=== PATIENT | female | born 1935 | race Caucasian/White ===

== ENCOUNTER → 2016-12-04 | Outpatient (CLI) | payer OTHER ==
[~2016-12-04] MED LIST: ACET-1311 PO; AMAN100C18 PO; AMLO-110 PO; ANAS1TAB6 PO; ASPEC81 PO; ATV1 SL; CARB25TA12 PO; CEPH500C PO; CHOL100010 PO; CHOL2000 PO; CLON0.5T3 PO; FRRG PO; GLIM1TAB2 PO; HLD1 PO; LIDO5DIS10 TOP; NF656 TOP; NRV5 PO; NUTR-468 PO; POLY335019 PO; QUET1TAB91 PO; SENN-65 PO; SENN8.6T15 PO; SERT-234 PO; SERT50TA PO; SRQ25 PO
[2016-12-04 18:31] LABS: URINE APPEARANCE CLOUDY (CLEAR); URINE BILIRUBIN NEG (NEG); URINE COLOR YELLOW; URINE EPITHELIAL CELL AUTO >30 /lpf (0-5); URINE NITRITE NEG (NEG); URINE SPECIFIC GRAVITY 1.018 (1.000-1.030); UROBILINOGEN NEG (NEG)
[2016-12-04 18:35] LABS: MANUAL MICROSCOPIC REQUIRED? NO; REVIEW REQ? YES
== END | disposition home or self-care (01) ==
LOC: C.LABSPEC 13:50
PROVIDERS: ATTEND Family Medicine
DX: R41.0 Disorientation, unspecified (principal)

== ENCOUNTER → 2016-12-13 | Outpatient (CLI) | payer OTHER ==
[2016-12-13 10:32] LABS: URINE APPEARANCE CLEAR (CLEAR); URINE BILIRUBIN NEG (NEG); URINE COLOR YELLOW; URINE NITRITE NEG (NEG); URINE PH 6.5 (4.5-7.5); URINE SPECIFIC GRAVITY 1.015 (1.000-1.030); UROBILINOGEN NEG (NEG)
[2016-12-13 10:42] LABS: MANUAL MICROSCOPIC REQUIRED? NO; REVIEW REQ? YES
== END | disposition home or self-care (01) ==
LOC: C.LABSPEC 10:08
PROVIDERS: ATTEND Family Medicine
DX: R41.82 Altered mental status, unspecified (principal)

== ENCOUNTER → 2017-01-30 | Outpatient (CLI) | payer OTHER ==
[~2017-01-30] MED LIST changes: +SENN1TAB86 PO; -SENN8.6T15 PO
[2017-01-30 12:23] LABS: BLOOD UREA NITROGEN 25 mg/dl (7-18); BUN/CREATININE RATIO 25.7 (10-20); CALCIUM 9.2 mg/dl (8.5-10.1); CARBON DIOXIDE 28 mmol/L (21-32); CHLORIDE 111 mmol/L (98-107); CREATININE 0.99 mg/dl (0.60-1.20); GLUCOSE 141 mg/dl (70-99); POTASSIUM 4.3 mmol/L (3.5-5.1); SODIUM 146 mmol/L (136-145)
[2017-01-30 13:07] LABS: ESTIMATED AVERAGE GLUCOSE 126 mg/dl; HA1C FLAG Normal (Normal)
== END | disposition home or self-care (01) ==
LOC: C.LABWYN 12:16
PROVIDERS: ATTEND Family Medicine
DX: E11.9 Type 2 diabetes mellitus without complications (principal)

== ENCOUNTER 2017-02-23 08:51 | Inpatient (IN) | payer OTHER ==
[~2017-02-23] VITALS: Ht 160 cm; Wt 39.7 kg
[~2017-02-23 08:51] MED LIST changes: -AMAN100C18 PO; -AMLO-110 PO; -ATV1 SL; -CHOL2000 PO; -HLD1 PO; -NF656 TOP; -POLY335019 PO; -QUET1TAB91 PO; -SENN-65 PO; -SERT50TA PO; -SRQ25 PO
[2017-02-23] MEDS ORDERED: AMLO-110 PO (09:14)
[2017-02-23] MEDS ORDERED: AMAN100C18 PO (09:14)
[2017-02-23 09:29] LABS: URINE APPEARANCE CLEAR (CLEAR); URINE BILIRUBIN NEG (NEG); URINE COLOR YELLOW; URINE EPITHELIAL CELL AUTO 20-30 /lpf (0-5); URINE NITRITE NEG (NEG); URINE SPECIFIC GRAVITY 1.019 (1.000-1.030); UROBILINOGEN NEG (NEG); ZZURINE CULT IF INDIC CATH NO
[2017-02-23 09:33] LABS: MANUAL MICROSCOPIC REQUIRED? NO; REVIEW REQ? NO
[2017-02-23] MEDS ORDERED: QUET1TAB91 PO (09:51)
[2017-02-23] MEDS ORDERED: SENN-65 PO (09:51)
[2017-02-23] MEDS ORDERED: POLY335019 PO (09:51)
[2017-02-23] MEDS ORDERED: SERT50TA PO (09:51)
[2017-02-23] MEDS ORDERED: CHOL2000 PO (09:51)
[2017-02-23] MEDS ORDERED: NF656 TOP (09:51)
[2017-02-23] MEDS ORDERED: SODIUM CHLORIDE 0.9% 1000ML 1,000 ML IV STA ×2 (09:54→12:14)
--- NOTE | 2017-02-23 10:23 | DIAGNOSTIC IMAGING REPORT ---
SINGLE VIEW CHEST CLINICAL HISTORY: Generalized weakness. FINDINGS: An AP, portable, upright chest radiograph is compared to study dated 10/10/2016 and correlated with chest CT dated 02/27/2015. The examination is degraded by portable technique and patient rotation. The cardiomediastinal silhouette is unremarkable. The mitral annulus is densely calcified. Chronic interstitial thickening and apical scarring are similar to previous. No airspace consolidation or large pleural effusion is identified. No pneumothorax is seen. The skeletal structures are osteopenic. Degenerative change and S-shaped thoracolumbar scoliosis are noted in the spine. Cholecystectomy clips are identified in the right upper quadrant. IMPRESSION: No acute cardiopulmonary abnormality. Electronically signed by: Gustavo Strickland M.D. 02/23/2017 10:21 AM Dictated Date/Time: 02/23/2017 10:19 AM
[2017-02-23 10:25] LABS: HEMATOCRIT 30.8 % (37-47); MEAN CELL VOLUME 101.3 fL (80-100); MEAN CORPUSCULAR HEMOGLOBIN 33.9 pg (25-34); MEAN CORPUSCULAR HGB CONC 33.4 g/dl (32-36); MEAN PLATELET VOLUME 9.4 fL (7.4-10.4); PLATELET COUNT 174 K/uL (130-400); RED BLOOD COUNT 3.04 M/uL (4.2-5.4); WHITE BLOOD COUNT 18.19 K/uL (4.8-10.8)
[2017-02-23 10:34] LABS: PARTIAL THROMBOPLASTIN RATIO 0.9; PROTHROMBIN TIME (PATIENT) 10.8 SECONDS (9.0-12.0)
[2017-02-23 10:39] LABS: BLOOD UREA NITROGEN 33 mg/dl (7-18); BUN/CREATININE RATIO 23.7 (10-20); CALCIUM 9.1 mg/dl (8.5-10.1); CARBON DIOXIDE 30 mmol/L (21-32); CHLORIDE 113 mmol/L (98-107); GLUCOSE 160 mg/dl (70-99); MAGNESIUM 2.8 mg/dl (1.8-2.4); POTASSIUM 4.1 mmol/L (3.5-5.1); SODIUM 151 mmol/L (136-145)
[2017-02-23 10:55] LABS: ALKALINE PHOSPHATASE 108 U/L (45-117); ALT/SGPT 25 U/L (12-78); AST/SGOT 15 U/L (15-37); CKMB/CK RATIO 2.3 (0-3.0)
[2017-02-23 10:59] LABS: BASO % 0.3 %; BASO ABS # 0.05 K/uL (0-0.2); COMPLETE YES; EOS % 0.3 %; IG% 0.3 %; LYMPH % 6.2 %; LYMPH ABS # 1.13 K/uL (1.2-3.4); MONO % 5.2 %; NEUT % 87.7 %
--- NOTE | 2017-02-23 11:37 | DIAGNOSTIC IMAGING REPORT ---
CT SCAN OF THE BRAIN WITHOUT IV CONTRAST CLINICAL HISTORY: Tremor. History of Parkinson's disease. Generalized weakness. COMPARISON STUDY: CT of the brain dated 08/23/2016. TECHNIQUE: Unenhanced axial CT scan of the brain is performed from the vertex to the skull base. CT DOSE: 614.27 mGy.cm FINDINGS: Brain parenchyma: There are age-related involutional changes noting mild subcortical and periventricular microangiopathic change. There is no hemorrhage, mass effect, or evidence of acute territorial ischemia by CT criteria. Baxter-white matter is preserved. No extra-axial fluid collection is seen. Ventricles, sulci, cisterns: Prominent secondary to involutional change. Intracranial vasculature: There is atherosclerotic calcification of the cavernous carotid and vertebral arteries. Calvarium: Unremarkable. Sinuses and mastoids: The visualized paranasal sinuses are clear. The mastoid air cells are well pneumatized. Orbits: The bony orbits are grossly intact. There are bilateral ocular lens implants. IMPRESSION: Senescent changes as above with no hemorrhage, mass effect, or evidence of acute territorial ischemia by CT criteria. Electronically signed by: Gustavo Strickland M.D. 02/23/2017 11:34 AM Dictated Date/Time: 02/23/2017 11:33 AM
[2017-02-23] MEDS ORDERED: CEFTRIAXONE SOD INJ 1 GM ADDVIAL IV STA (11:42)
--- NOTE | 2017-02-23 12:49 | History and Physical ---
History & Physical Date & Time of Service: Feb 23, 2017 at 12:49 . Chief Complaint: weakness, confusion . Primary Care Physician: Marlene Walter . History of Present Illness Source: patient, clinic records, hospital records 81 YO female followed by Dr. Schaefer for Family Medicine and Dr. Barahona for Neurology. History of Parkinson's disease, dementia, and other problems noted below. She resides at [facility] in [place]. Family has noticed increasing weakness and confusion. She is often agitated and sometimes screams. At times, she appears to be having visual hallucinations. Appetite is poor. No apparent fever, cough, nausea, vomiting, diarrhea, or urinary symptoms. . Past Medical/Surgical History Chronic and Resolved Medical Problems: (1) Anxiety Status: Chronic (2) Asthma Status: Chronic (3) At high risk for aspiration Status: Chronic (4) Breast cancer Status: Chronic (5) CKD (chronic kidney disease), stage III Status: Chronic (6) Dementia Status: Chronic (7) Depression Status: Chronic (8) Diabetes mellitus, type 2 Status: Chronic (9) PRICE (generalized anxiety disorder) Status: Chronic (10) GERD (gastroesophageal reflux disease) Status: Chronic (11) Parkinson disease Status: Chronic Surgical Problems: (1) Femoral neck fracture Permanent Comment: right, s/p repair Status: Chronic (2) H/O hernia repair Status: Chronic (3) H/O mastectomy Status: Chronic (4) History of cataract surgery Status: Chronic (5) Hx of tonsillectomy Status: Chronic (6) S/P cholecystectomy Status: Chronic (7) S/p left hip fracture Permanent Comment: s/p repair Status: Chronic . Family History Cancer Gallbladder disease Heart disease Social History Smoking Status: Never Smoker Alcohol Use: none Housing status: assisted living Immunizations History of Influenza Vaccine: Yes History of Tetanus Vaccine?: Yes Tetanus Immunization Date: Sep 12, 2014 History of Pneumococcal: Yes Pneumococcal Date: Jan 12, 2016 Multi-Drug Resistant Organisms History of MDRO: No Allergies Coded Allergies: Lisinopril (Unverified Allergy, Unknown, UNKNOWN, 10/10/16) Fluoxetine (Verified Adverse Reaction, Mild, NAUSEA, 10/10/16) if medicated VIA IV PT DOES NOT EXPERIANCE NAUSEA Morphine (Verified Adverse Reaction, Mild, NAUSEA, 10/10/16) Oxycodone (Verified Adverse Reaction, Mild, NAUSEA, 10/10/16) Propoxyphene (Verified Adverse Reaction, Mild, NAUSEA, 10/10/16) Home Medications Scheduled Amantadine Hcl (Amantadine Hcl), 100 MG PO BID Amlodipine (Norvasc), 5 MG PO DAILY Anastrozole (Anastrozole), 1 TAB PO DAILY Carbidopa/Levodopa (Sinemet 25MG/100MG), 1 TABS PO QID Cholecalciferol (Vitamin D3), 1 CAP PO DAILY Clonazepam (Klonopin), 0.5 MG PO TID Ferrous Gluconate (Ferrous Gluconate), 324 MG PO TIDM Glimepiride (Glimepiride), 1 TAB PO DAILY Lidocaine (Lidoderm Patch 5%), 1 PATCH TOP DAILY Nutritional Supplements (Glucerna), 1 CAN PO BID Polyethylene Glycol 3350 (Miralax), 17 GM PO DAILY Quetiapine Fumarate (Seroquel), 25 MG PO HS Sennosides-Docusate Sodium (Senokot S), 2 TABS PO BID Sertraline (Zoloft), 100 MG PO DAILY Sertraline Hcl (Zoloft), 50 MG PO DAILY Scheduled PRN Acetaminophen (Tylenol), 650 MG PO Q4 PRN for Pain Review of Systems Unable to obtain due to patient's condition. . Physical Exam Vital Signs Date Time Temp Pulse Resp B/P Pulse Ox O2 Delivery O2 Flow Rate FiO2 02/23/17 12:06 84 24 135/85 100 Room Air 02/23/17 10:47 74 138/54 72 134/54 02/23/17 10:38 64 20 121/88 98 Room Air 02/23/17 09:10 97 Room Air 02/23/17 09:00 37.9 77 16 138/55 97 Room Air General Appearance: + cachetic Head: normocephalic, atraumatic Eyes: normal inspection, PERRL, EOMI, sclerae normal ENT: + pertinent finding (oral mucosa very dry) Neck: supple, no adenopathy, thyroid normal, no JVD, trachea midline Respiratory/Chest: lungs clear, no respiratory distress, no accessory muscle use Cardiovascular: + pertinent finding (exam very limited (pt prefers not to be examined), RRR, no murmur, gallop, or rub appreciatiate) Abdomen/GI: normal bowel sounds, non tender, soft, no organomegaly, no pulsatile mass Extremities/Musculoskelatal: no calf tenderness, normal capillary refill, no pedal edema Neurologic/Psych: + pertinent finding (exam very limited; pt unable to cooperate; PERRL, EOMI; confused / agitated; moves all 4 extr; Babinski's equivocally upgoing bilat) Skin: normal color, warm/dry, no rash, + pertinent finding (s/p right mastectomy; multiple ecchymoses) Lymphatic: no adenopathy Diagnostics Laboratory Results Results Past 24 Hours Test 02/23/17 09:00 02/23/17 10:14 Range/Units Urine Color YELLOW Urine Appearance CLEAR CLEAR Urine pH 6.0 4.5-7.5 Urine Specific [place] 1.019 1.000-1.030 Urine Protein NEG NEG Urine Glucose (UA) NEG NEG Urine Ketones NEG NEG Urine Occult Blood NEG NEG Urine Nitrite NEG NEG Urine Bilirubin NEG NEG Urine Urobilinogen NEG NEG Urine Leukocyte Esterase TRACE NEG Urine WBC (Auto) 1-5 0-5 /hpf Urine RBC (Auto) 0-4 0-4 /hpf Urine Hyaline Casts (Auto) 5-10 0-5 /lpf Urine Epithelial Cells (Auto) 20-30 0-5 /lpf Urine Bacteria (Auto) NEG NEG White Blood Count 18.19 4.8-10.8 K/uL Red Blood Count 3.04 4.2-5.4 M/uL Hemoglobin 10.3 12.0-16.0 g/dL Hematocrit 30.8 37-47 % Mean Corpuscular Volume 101.3 80-100 fL Mean Corpuscular Hemoglobin 33.9 25-34 pg Mean Corpuscular Hemoglobin Concent 33.4 32-36 g/dl Platelet Count 174 130-400 K/uL Mean Platelet Volume 9.4 7.4-10.4 fL Neutrophils (%) (Auto) 87.7 % Lymphocytes (%) (Auto) 6.2 % Monocytes (%) (Auto) 5.2 % Eosinophils (%) (Auto) 0.3 % Basophils (%) (Auto) 0.3 % Neutrophils # (Auto) 15.94 1.4-6.5 K/uL Lymphocytes # (Auto) 1.13 1.2-3.4 K/uL Monocytes # (Auto) 0.95 0.11-0.59 K/uL Eosinophils # (Auto) 0.06 0-0.5 K/uL Basophils # (Auto) 0.05 0-0.2 K/uL RDW Standard Deviation 50.3 36.4-46.3 fL RDW Coefficient of Variation 13.5 11.5-14.5 % Immature Granulocyte % (Auto) 0.3 % Immature Granulocyte # (Auto) 0.06 0.00-0.02 K/uL Prothrombin Time 10.8 9.0-12.0 SECONDS Prothromb Time International Ratio 1.0 0.9-1.1 Activated Partial Thromboplast Time 23.3 21.0-31.0 SECONDS Partial Thromboplastin Ratio 0.9 Sodium Level 151 136-145 mmol/L Potassium Level 4.1 3.5-5.1 mmol/L Chloride Level 113 98-107 mmol/L Carbon Dioxide Level 30 21-32 mmol/L Anion Gap 8.0 3-11 mmol/L Blood Urea Nitrogen 33 7-18 mg/dl Creatinine 1.40 0.60-1.20 mg/dl Estimated GFR () 41.0 Estimated GFR (Non- 35.4 BUN/Creatinine Ratio 23.7 10-20 Random Glucose 160 70-99 mg/dl Calcium Level 9.1 8.5-10.1 mg/dl Magnesium Level 2.8 1.8-2.4 mg/dl Total Bilirubin 0.5 0.2-1 mg/dl Direct Bilirubin 0.1 0-0.2 mg/dl Aspartate Amino Transf (AST/SGOT) 15 15-37 U/L Alanine Aminotransferase (ALT/SGPT) 25 12-78 U/L Alkaline Phosphatase 108 45-117 U/L Total Creatine Kinase 83 26-192 U/L Creatine Kinase MB 1.9 0.5-3.6 ng/ml Creatine Kinase MB Ratio 2.3 0-3.0 Troponin I < 0.015 0-0.045 ng/ml Total Protein 7.4 6.4-8.2 gm/dl Albumin 3.9 3.4-5.0 gm/dl Thyroid Stimulating Hormone (TSH) 2.900 0.300-4.500 uIu/ml Diagnostic Radiology SINGLE VIEW CHEST FINDINGS: An AP, portable, upright chest radiograph is compared to study dated 10/10/2016 and correlated with chest CT dated 02/27/2015. The examination is degraded by portable technique and patient rotation. The cardiomediastinal silhouette is unremarkable. The mitral annulus is densely calcified. Chronic interstitial thickening and apical scarring are similar to previous. No airspace consolidation or large pleural effusion is identified. No pneumothorax is seen. The skeletal structures are osteopenic. Degenerative change and S-shaped thoracolumbar scoliosis are noted in the spine. Cholecystectomy clips are identified in the right upper quadrant. IMPRESSION: No acute cardiopulmonary abnormality. Electronically signed by: Gustavo Strickland M.D. 02/23/2017 10:[address] SCAN OF THE BRAIN WITHOUT IV CONTRAST FINDINGS: Brain parenchyma: There are age-related involutional changes noting mild subcortical and periventricular microangiopathic change. There is no hemorrhage, mass effect, or evidence of acute territorial ischemia by CT criteria. Baxter-white matter is preserved. No extra-axial fluid collection is seen. Ventricles, sulci, cisterns: Prominent secondary to involutional change. Intracranial vasculature: There is atherosclerotic calcification of the cavernous carotid and vertebral arteries. Calvarium: Unremarkable. Sinuses and mastoids: The visualized paranasal sinuses are clear. The mastoid air cells are well pneumatized. Orbits: The bony orbits are grossly intact. There are bilateral ocular lens implants. IMPRESSION: Senescent changes as above with no hemorrhage, mass effect, or evidence of acute territorial ischemia by CT criteria. Electronically signed by: Gustavo Strickland M.D. 02/23/2017 11:34 AM . EKG EKG performed at 10:01 reviewed and demonstrated NSR at 66 / minute, slight ST depression inferior and lateral leads. . Impression Assessment and Plan ALTERED MENTAL STATUS CT head demonstrated atrophy, small vessel ischemic changes, no acute process. Most likely encephalopathy secondary to metabolic abnormalities. WBC elevated, but no apparent infection at this time. Underlying dementia. Management of hypernatremia and dehydration with IV fluids. HYPERNATREMIA Serum sodium = 151. Hypernatremia probably due to inadequate intake of free water. Hypotonic IV fluids. Follow. DEHYDRATION IV fluids. Follow. LEUKOCYTOSIS WBC 18,000. No fever. No specific symptoms to suggest source of infection. No infiltrates on chest x-ray. UA shows only 1-5 WBC's and no bacteria. Received a dose of ceftriaxone in ED. Reassess as clinically indicated if condition changes. HYPERTENSION Continue amlodipine. Follow and titrate Rx. DM TYPE 2 Random glucose in ED 160. Tight control not indicated given advanced age and comorbidities. Hold glimepiride during acute illness. Insulin coverage as needed with liberal glycemic goals. CHRONIC ASPIRATION Aspiration precautions, thickened liquids, pureed diet. Consult MORTGAGE PROCESSING CLERK for follow-up bedside swallowing eval. PARKINSON'S DISEASE Continue carbidopa/levodopa and amantadine. Consult Neuro. ANXIETY On chronic therapy with clonazepam. Continue usual Rx. DEPRESSION Continue usual dose of sertraline. HISTORY BREAST CA Continue anastrozole. AMBULATORY DYSFUNCTION / FALLS Probably multifactorial. PT / OT evals. VTE PROPHYLAXIS Moderate-high risk for VTE. SQ heparin. Ambulate as able with assistance. RESUSCITATION STATUS Discussed with son / POA. Patient has a living will. Her condition has been deteriorating for some time and her quality of life is poor. He feels that she would prefer a natural passing and not want any extraordinary measures undertaken at end of life. Code status = DNR. DISPOSITION Admit to Med-Surg Unit. Discharge disposition to be determined- may need higher level of care. Consult Case Management. Family Medicine follow-up with Dr. Schaefer. Neurology follow-up with Dr. Barahona. Son Leighton would like update on changes of condition or medications. . VTE Prophylaxis VTE Risk Assessment Done? Y/N: Yes Risk Level: Moderate Given or contraindicated: Unfractionated heparin SQ
[2017-02-23 13:10] VITALS: O2SAT 100; BMI 15.5
[2017-02-23 13:13] VITALS: Ht 160 cm; Wt 39.7 kg
[2017-02-23 14:02] VITALS: BP 135/79; PULSE 73; TEMP 36.7; O2SAT 100
[2017-02-23] MEDS ORDERED: D5W AND 1/2NSS + 20MEQ KCL 1,000 ML IV SCH (14:45)
[2017-02-23] MEDS: CLONAZEPAM 0.5 MG TAB PO SCH ×2 (16:22→21:41)
[2017-02-23] MEDS: CARBIDOPA/LEVODOPA 25/100MG TAB PO SCH ×2 (16:23→21:37)
[2017-02-23 16:35] VITALS: O2SAT 100
--- NOTE | 2017-02-23 16:56 | EMERGENCY ROOM VISIT NOTE ---
History Report prepared by Ayde: Gilberto Pacheco Under the Supervision of: Dr. Rubni Toney M.D. First contact with patient: 09:34 Chief Complaint: OTHER COMPLAINT Stated Complaint: OTHER COMPLAINT History of Present Illness The patient is an 81 year old female with a history of Parkinson's who presents to the Emergency Room with complaints of increased generalized tremors. The patient came to the ED from [facility]. The patient's granddaughter received a text from [facility] that the patient was screaming and that they were going to bring her to the ED. The patient is not at baseline mental status per her granddaughter, who states that the patient is normally able to converse. The patient denies headache, chest pain, abdominal pain. The patient reportedly behaves this way when she has a UTI. The patient follows up with Dr. Barahona, Neurologist. [facility] The granddaughter notes that the patient falls frequently. History is limited secondary to altered mental status. Source of History: patient, family, long-term notes History Limited By: AMS Position: other (generalized) Quality: other (tremors) Timing: other (increased) Associated Symptoms: No abdominal pain, No chest pain, No headache Review of Systems ROS is limited secondary to altered mental status. Past Medical & Surgical Medical Problems: (1) Altered mental status (2) Asthma (3) At high risk for aspiration (4) Breast cancer (5) CKD (chronic kidney disease), stage III (6) Dementia (7) Depression (8) DM2 (diabetes mellitus, type 2) (9) Encephalopathy (10) PRICE (generalized anxiety disorder) (11) GERD (gastroesophageal reflux disease) (12) Parkinson disease (13) UTI (urinary tract infection) Surgical Problems: (1) Femoral neck fracture (2) H/O hernia repair (3) H/O mastectomy (4) History of cataract surgery (5) Hx of tonsillectomy (6) S/P cholecystectomy (7) S/p left hip fracture Family History Cancer Gallbladder disease Heart disease Social History Smoking Status: Unknown if Ever Smoked Alcohol Use: none Housing Status: lives with significant other, long-term, unknown Current/Historical Medications Scheduled Amantadine Hcl (Amantadine Hcl), 100 MG PO BID Amlodipine (Norvasc), 5 MG PO DAILY Anastrozole (Anastrozole), 1 TAB PO DAILY Carbidopa/Levodopa (Sinemet 25MG/100MG), 1 TABS PO QID Cholecalciferol (Vitamin D3), 1 CAP PO DAILY Clonazepam (Klonopin), 0.5 MG PO TID Ferrous Gluconate (Ferrous Gluconate), 324 MG PO TIDM Glimepiride (Glimepiride), 1 TAB PO DAILY Lidocaine (Lidoderm Patch 5%), 1 PATCH TOP DAILY Nutritional Supplements (Glucerna), 1 CAN PO BID Polyethylene Glycol 3350 (Miralax), 17 GM PO DAILY Quetiapine Fumarate (Seroquel), 25 MG PO HS Sennosides-Docusate Sodium (Senokot S), 2 TABS PO BID Sertraline (Zoloft), 100 MG PO DAILY Sertraline Hcl (Zoloft), 50 MG PO DAILY Scheduled PRN Acetaminophen (Tylenol), 650 MG PO Q4 PRN for Pain Allergies Coded Allergies: Lisinopril (Unverified Allergy, Unknown, UNKNOWN, 10/10/16) Fluoxetine (Verified Adverse Reaction, Mild, NAUSEA, 10/10/16) if medicated VIA IV PT DOES NOT EXPERIANCE NAUSEA Morphine (Verified Adverse Reaction, Mild, NAUSEA, 10/10/16) Oxycodone (Verified Adverse Reaction, Mild, NAUSEA, 10/10/16) Propoxyphene (Verified Adverse Reaction, Mild, NAUSEA, 10/10/16) Physical Exam Vital Signs Date Time Temp Pulse Resp B/P Pulse Ox O2 Delivery O2 Flow Rate FiO2 02/23/17 12:06 84 24 135/85 100 Room Air 02/23/17 10:47 74 138/54 72 134/54 02/23/17 10:38 64 20 121/88 98 Room Air 02/23/17 09:10 97 Room Air 02/23/17 09:00 37.9 77 16 138/55 97 Room Air Physical Exam GENERAL: Awake, alert, agitated-appearing, no acute distress, somewhat gaunt- appearing. HENT: Normocephalic, atraumatic. Very dry mucous membranes. EYES: Normal conjunctiva. Sclera non-icteric. NECK: Supple. No nuchal rigidity. FROM. No JVD. RESPIRATORY: Clear to auscultation. CARDIAC: Regular rate, normal rhythm. Extremities warm and well perfused. Pulses equal. ABDOMEN: Soft, non-distended. No tenderness to palpation. No rebound or guarding. No masses. BACK: Kyphotic. RECTAL: Deferred. MUSCULOSKELETAL: Chest examination reveals no tenderness. The back is symmetrical on inspection without obvious abnormality. There is no CVA tenderness to palpation. No joint edema. LOWER EXTREMITIES: Calves are equal size bilaterally and non-tender. No edema. Scattered bruising bilaterally. NEURO: Altered sensorium. Speech is very garbled. Follows basic commands although not cooperating for full neuro exam. Baseline tremor noted. SKIN: No rash or jaundice noted. Medical Decision & Procedures ER Provider Diagnostic Interpretation: X ray results as stated below per my interpretation and radiologist interpretation. Other radiology results as stated below per my review and radiologist interpretation CT SCAN OF THE BRAIN WITHOUT IV CONTRAST CLINICAL HISTORY: Tremor. History of Parkinson's disease. Generalized weakness. COMPARISON STUDY: CT of the brain dated 08/23/2016. TECHNIQUE: Unenhanced axial CT scan of the brain is performed from the vertex to the skull base. CT DOSE: 614.27 mGy.cm FINDINGS: Brain parenchyma: There are age-related involutional changes noting mild subcortical and periventricular microangiopathic change. There is no hemorrhage, mass effect, or evidence of acute territorial ischemia by CT criteria. Baxter-white matter is preserved. No extra-axial fluid collection is seen. Ventricles, sulci, cisterns: Prominent secondary to involutional change. Intracranial vasculature: There is atherosclerotic calcification of the cavernous carotid and vertebral arteries. Calvarium: Unremarkable. Sinuses and mastoids: The visualized paranasal sinuses are clear. The mastoid air cells are well pneumatized. Orbits: The bony orbits are grossly intact. There are bilateral ocular lens implants. IMPRESSION: Senescent changes as above with no hemorrhage, mass effect, or evidence of acute territorial ischemia by CT criteria. Electronically signed by: Gustavo Strickland M.D. 02/23/2017 11:34 AM Dictated Date/Time: 02/23/2017 11:33 AM SINGLE VIEW CHEST CLINICAL HISTORY: Generalized weakness. FINDINGS: An AP, portable, upright chest radiograph is compared to study dated 10/10/2016 and correlated with chest CT dated 02/27/2015. The examination is degraded by portable technique and patient rotation. The cardiomediastinal silhouette is unremarkable. The mitral annulus is densely calcified. Chronic interstitial thickening and apical scarring are similar to previous. No airspace consolidation or large pleural effusion is identified. No pneumothorax is seen. The skeletal structures are osteopenic. Degenerative change and S-shaped thoracolumbar scoliosis are noted in the spine. Cholecystectomy clips are identified in the right upper quadrant. IMPRESSION: No acute cardiopulmonary abnormality. Electronically signed by: Gustavo Strickland M.D. 02/23/2017 10:21 AM Dictated Date/Time: 02/23/2017 10:19 AM Laboratory Results 02/23/17 10:14 Red Blood Count 3.04, Mean Corpuscular Volume 101.3, Mean Corpuscular Hemoglobin 33.9, Mean Corpuscular Hemoglobin Concent 33.4, Mean Platelet Volume 9.4, Neutrophils (%) (Auto) 87.7, Lymphocytes (%) (Auto) 6.2, Monocytes (%) ( Auto) 5.2, Eosinophils (%) (Auto) 0.3, Basophils (%) (Auto) 0.3, Neutrophils # ( Auto) 15.94, Lymphocytes # (Auto) 1.13, Monocytes # (Auto) 0.95, Eosinophils # ( Auto) 0.06, Basophils # (Auto) 0.05 02/23/17 10:14 Test 02/23/17 09:00 02/23/17 10:14 Urine Color YELLOW Urine Appearance CLEAR (CLEAR) Urine pH 6.0 (4.5-7.5) Urine Specific [place] 1.019 (1.000-1.030) Urine Protein NEG (NEG) Urine Glucose (UA) NEG (NEG) Urine Ketones NEG (NEG) Urine Occult Blood NEG (NEG) Urine Nitrite NEG (NEG) Urine Bilirubin NEG (NEG) Urine Urobilinogen NEG (NEG) Urine Leukocyte Esterase TRACE (NEG) Urine WBC (Auto) 1-5 /hpf (0-5) Urine RBC (Auto) 0-4 /hpf (0-4) Urine Hyaline Casts (Auto) 5-10 /lpf (0-5) Urine Epithelial Cells (Auto) 20-30 /lpf (0-5) Urine Bacteria (Auto) NEG (NEG) White Blood Count 18.19 K/uL (4.8-10.8) Red Blood Count 3.04 M/uL (4.2-5.4) Hemoglobin 10.3 g/dL (12.0-16.0) Hematocrit 30.8 % (37-47) Mean Corpuscular Volume 101.3 fL (80-100) Mean Corpuscular Hemoglobin 33.9 pg (25-34) Mean Corpuscular Hemoglobin Concent 33.4 g/dl (32-36) Platelet Count 174 K/uL (130-400) Mean Platelet Volume 9.4 fL (7.4-10.4) Neutrophils (%) (Auto) 87.7 % Lymphocytes (%) (Auto) 6.2 % Monocytes (%) (Auto) 5.2 % Eosinophils (%) (Auto) 0.3 % Basophils (%) (Auto) 0.3 % Neutrophils # (Auto) 15.94 K/uL (1.4-6.5) Lymphocytes # (Auto) 1.13 K/uL (1.2-3.4) Monocytes # (Auto) 0.95 K/uL (0.11-0.59) Eosinophils # (Auto) 0.06 K/uL (0-0.5) Basophils # (Auto) 0.05 K/uL (0-0.2) RDW Standard Deviation 50.3 fL (36.4-46.3) RDW Coefficient of Variation 13.5 % (11.5-14.5) Immature Granulocyte % (Auto) 0.3 % Immature Granulocyte # (Auto) 0.06 K/uL (0.00-0.02) Prothrombin Time 10.8 SECONDS (9.0-12.0) Prothromb Time International Ratio 1.0 (0.9-1.1) Activated Partial Thromboplast Time 23.3 SECONDS (21.0-31.0) Partial Thromboplastin Ratio 0.9 Anion Gap 8.0 mmol/L (3-11) Estimated GFR () 41.0 Estimated GFR (Non- 35.4 BUN/Creatinine Ratio 23.7 (10-20) Calcium Level 9.1 mg/dl (8.5-10.1) Magnesium Level 2.8 mg/dl (1.8-2.4) Total Bilirubin 0.5 mg/dl (0.2-1) Direct Bilirubin 0.1 mg/dl (0-0.2) Aspartate Amino Transf (AST/SGOT) 15 U/L (15-37) Alanine Aminotransferase (ALT/SGPT) 25 U/L (12-78) Alkaline Phosphatase 108 U/L (45-117) Total Creatine Kinase 83 U/L (26-192) Creatine Kinase MB 1.9 ng/ml (0.5-3.6) Creatine Kinase MB Ratio 2.3 (0-3.0) Troponin I < 0.015 ng/ml (0-0.045) Total Protein 7.4 gm/dl (6.4-8.2) Albumin 3.9 gm/dl (3.4-5.0) Procalcitonin < 0.05 ng/mL (0-0.5) Thyroid Stimulating Hormone (TSH) 2.900 uIu/ml (0.300-4.500) Laboratory results reviewed by me Medications Administered Medications (Trade) Dose Ordered Sig/Miracle Route Start Time Stop Time Status Last Admin Dose Admin Sodium Chloride (Nss 1000ml) 1,000 ml @ 999 mls/hr Q1H1M STAT IV 02/23/17 09:54 02/23/17 10:54 DC 02/23/17 09:54 999 MLS/HR Ceftriaxone Sodium 1 gm 1 gm NOW STAT IV 02/23/17 11:42 02/23/17 11:44 DC 02/23/17 11:42 1 GM Sodium Chloride (Nss 1000ml) 1,000 ml @ 125 mls/hr Q8H STAT IV 02/23/17 12:14 02/23/17 14:47 DC 02/23/17 13:00 125 MLS/HR ECG Indication: altered mental status Rate (beats per minute): 66 Rhythm: normal sinus Findings: nonspecific-ST abn, no acute ischemic change, prolonged QT ED Course 0950: The patient was evaluated in room A2. A complete history and physical exam was performed. 0954: NSS 1000 ml @ 999 mls/hr. 1142: Rocephin 1 gm IV. 1214: NSS 1000 ml @ 125 mls/hr. 1215: Updated the patient's family. [facility] medicine is being paged. 1237: Discussed the case with Dr. Seymour, [facility] Hospitalist. The patient will be evaluated. 1250: Had a long conversation with the family and updated them. They recommended restraints as she usually tries to pull her IVs out. Medical Decision Triage Nursing notes reviewed. The patient's presentation and history were concerning for altered mental status. Etiologies such as metabolic, infection, hypo/hyperglycemia, electrolyte abnormalities, cardiac sources, intracerebral event, toxicologic, neurologic, as well as others were entertained. Patient was evaluated. She has a extensive neurologic history. She appears clinically dehydrated. She had a urine sample obtained. Blood work was done. Imaging was ordered. The patient was hydrated with normal saline. She has a slight leukocytosis. Urinalysis did show some abnormality but was not overly convincing for infection. Given the leukocytosis change in mental status she was given IV Rocephin. A culture was sent. I did discuss this with the patient 's family. She will need further treatment in the hospital as well as consultation. They were in agreement. [facility] The patient was evaluated in the Emergency Room for further management. The chart was completed utilizing [employer] Speech voice recognition software. Grammatical errors, random word insertions, pronoun errors, and incomplete sentences are an occasional consequence of this system due to software limitations, ambient noise, and hardware issues. Any formal questions or concerns about the content, text, or information contained within the body of this dictation should be directly addressed to the physician for clarification. Consults Time Called: 1220 Consulting Phys[facility] Returned Call: [phone]: Discussed the case with [facility]. The patient will be evaluated. Impression Primary Impression: Altered mental status Additional Impressions: Dehydration UTI (urinary tract infection) Scribe Attestation The scribe's documentation has been prepared under my direction and personally reviewed by me in its entirety. I confirm that the note above accurately reflects all work, treatment, procedures, and medical decision making performed by me. Departure Information Dispostion Being Evaluated By Hospitalist Referrals ADAMA COOPER (PCP) Patient Instructions My [facility] Problem Qualifiers
[2017-02-23 21:05] LABS: BUN/CREATININE RATIO 26.1 (10-20); CALCIUM 8.6 mg/dl (8.5-10.1); CREATININE 1.1 mg/dl (0.60-1.20); POTASSIUM 3.9 mmol/L (3.5-5.1)
[2017-02-23] MEDS ORDERED: ACETAMINOPHEN 325 MG TAB PO PRN (21:30)
[2017-02-23] MEDS: HEPARIN SOD 5000 UNIT/0.5 ML CARP SQ SCH (21:36)
[2017-02-23] MEDS: AMANTADINE HCL 100 MG CAP PO SCH (21:38)
[2017-02-23] MEDS: DOCUSATE SODIUM/SENNA 50/8.6MG TAB PO SCH (21:39)
[2017-02-23] MEDS: QUETIAPINE FUMARATE 25 MG TAB PO SCH (21:39)
[2017-02-23] MEDS: D5W AND 1/4NSS + 20MEQ KCL 1,000 ML IV SCH (22:48)
[2017-02-24] VITALS: BP 139/56; PULSE 74; TEMP 36.4; O2SAT 98
[2017-02-24 06:35] LABS: BASO % 0.4 %; BASO ABS # 0.04 K/uL (0-0.2); COMPLETE YES; EOS % 3.5 %; HEMATOCRIT 30.7 % (37-47); IG% 0.2 %; LYMPH % 18.9 %; LYMPH ABS # 2.03 K/uL (1.2-3.4); MEAN CELL VOLUME 104.4 fL (80-100); MEAN CORPUSCULAR HEMOGLOBIN 34.7 pg (25-34); MEAN CORPUSCULAR HGB CONC 33.2 g/dl (32-36); MEAN PLATELET VOLUME 10.7 fL (7.4-10.4); MONO % 7.7 %; NEUT % 69.3 %; PLATELET COUNT 148 K/uL (130-400); RED BLOOD COUNT 2.94 M/uL (4.2-5.4); WHITE BLOOD COUNT 10.72 K/uL (4.8-10.8)
[2017-02-24 06:44] VITALS: BP 129/58; PULSE 84; TEMP 36.6; O2SAT 99
[2017-02-24 06:54] LABS: BUN/CREATININE RATIO 22.8 (10-20); CALCIUM 8.7 mg/dl (8.5-10.1); CREATININE 0.94 mg/dl (0.60-1.20); POTASSIUM 4.2 mmol/L (3.5-5.1)
[2017-02-24] MEDS: D5W AND 1/4NSS + 20MEQ KCL 1,000 ML IV SCH ×2 (08:24→17:54)
[2017-02-24] MEDS: AMANTADINE HCL 100 MG CAP PO SCH (08:25)
[2017-02-24] MEDS: CARBIDOPA/LEVODOPA 25/100MG TAB PO SCH ×4 (08:26→20:27)
[2017-02-24] MEDS: DOCUSATE SODIUM/SENNA 50/8.6MG TAB PO SCH (08:26)
[2017-02-24] MEDS: HEPARIN SOD 5000 UNIT/0.5 ML CARP SQ SCH (08:30)
[2017-02-24] MEDS: CLONAZEPAM 0.5 MG TAB PO SCH ×3 (08:32→20:27)
[2017-02-24] MEDS ORDERED: ANASTROZOLE 1 MG TAB PO SCH (09:00)
[2017-02-24] MEDS ORDERED: SERTRALINE HCL 50 MG TAB PO SCH (09:00)
[2017-02-24] MEDS ORDERED: AMLODIPINE BESYLATE 5 MG TAB PO SCH (09:00)
[2017-02-24] MEDS ORDERED: SERTRALINE HCL 100 MG TAB PO SCH (09:00)
[2017-02-24 10:26] VITALS: O2SAT 100
--- NOTE | 2017-02-24 10:33 | Clinical Documentation Query ---
CLINICAL DOCUMENTATION QUERY Dr. SANTANA, In your clinical opinion is this patient being managed for: ( ) Acute kidney failure, POA ( ) Other explanation of clinical findings (Please Explain) ( ) Unable to determine (Please Define) ( ) Need to Discuss ( ) Not Agree The medical record reflects the following clinical findings, treatment, and risk factors. Clinical Indicators: 81 yo female presenting with altered mental status, hypernatremia. Na 151, BUN 33, Cr 1.40. Review of historical Cr showed range of 0.71-1.0 over the past year. Treatment: 1L NSS bolus then continuous fluids, monitor PRP's Risk Factors: age, dehydration, CKD stage III, DM Please clarify and document your clinical opinion in the progress notes and discharge summary. Terms such as "probable", "suspected", "likely", "questionable", "possible", or "still to be ruled out" are acceptable. IF IN AGREEMENT, YOU MUST DOCUMENT ABOVE DIAGNOSTIC STATEMENT IN DAILY PROGRESS NOTES AND DISCHARGE SUMMARY. This document is not part of the patient's record. Thank You, Josselyn Azar, RN [phone]
--- NOTE | 2017-02-24 14:00 | Neurology Consultation ---
Neurology Consultation Date of Consultation: Feb 24, 2017. Attending Physician: Miri Franklin M.D. Primary Care Physician: Marlene Walter Reason for Consultation: delirium Parkinson's disease History of Present Illness Source: patient Chapo is an 81 year old female who is currently living at [facility]. she has a history of parkinson's disease and dementia and is known to our office. She had some increased confusion and agitation and sometimes screams. She sometimes has visual hallucinations. She has not been eating well. She is very [place] and does not answer appropriately to questions. She does say she takes her parkinson 's medications 3 x a day with meals. denies pain, SOB, abdominal pain. she thinks she is here for surgery. Past Medical/Surgical History Medical Problems: (1) Altered mental status Status: Acute (2) Constipation Status: Acute (3) Dehydration Status: Acute (4) Dehydration Status: Acute (5) Dehydration Status: Acute (6) Diverticulitis Status: Acute (7) Failure to thrive Status: Acute (8) Fall Status: Acute (9) Hypertension Status: Acute (10) Intertrochanteric fracture of left hip Status: Acute (11) Metabolic encephalopathy Status: Acute (12) Pain in superior left lower extremity Status: Acute (13) Right ankle sprain Status: Acute (14) Shoulder pain, right Status: Acute Social History Smoking Status: Former smoker Alcohol Use: none Housing Status: lives with significant other, residential, unknown Allergies Coded Allergies: Lisinopril (Unverified Allergy, Unknown, UNKNOWN, 10/10/16) Fluoxetine (Verified Adverse Reaction, Mild, NAUSEA, 10/10/16) if medicated VIA IV PT DOES NOT EXPERIANCE NAUSEA Morphine (Verified Adverse Reaction, Mild, NAUSEA, 10/10/16) Oxycodone (Verified Adverse Reaction, Mild, NAUSEA, 10/10/16) Propoxyphene (Verified Adverse Reaction, Mild, NAUSEA, 10/10/16) Current Inpatient Medications Current Inpatient Medications Medications (Trade) Dose Ordered Sig/Miracle Route Start Time Stop Time Status Last Admin Dose Admin Heparin Sodium (Porcine) (Heparin Sq 5000 Unit/0.5ml) 5,000 unit Q12 SQ 02/23/17 21:00 03/25/17 20:59 02/24/17 08:30 5,000 UNIT Amantadine HCl (Symmetrel Cap) 100 mg BID PO 02/23/17 21:00 03/25/17 20:59 02/24/17 08:25 100 MG Amlodipine Besylate (Norvasc Tab) 5 mg DAILY PO 02/24/17 09:00 03/26/17 08:59 02/24/17 08:27 5 MG Anastrozole (Arimidex Tab) 1 mg DAILY PO 02/24/17 09:00 03/26/17 08:59 02/24/17 08:29 1 MG Carbidopa/Levodopa (Sinemet 25/ 100MG Tab) 1 tab QID PO 02/23/17 17:00 03/25/17 16:59 02/24/17 13:30 1 TAB Clonazepam (Klonopin Tab) 0.5 mg TID PO 02/23/17 14:00 03/25/17 13:59 02/24/17 13:30 0.5 MG Quetiapine Fumarate (seroQUEL TAB) 25 mg HS PO 02/23/17 21:00 03/25/17 20:59 02/23/17 21:39 25 MG Senna/Docusate Sodium (Senokot S Tab) 2 tab BID PO 02/23/17 21:00 03/25/17 20:59 02/24/17 08:26 2 TAB Sertraline HCl (Zoloft Tab) 100 mg DAILY PO 02/24/17 09:00 02/24/17 08:28 100 MG Sertraline HCl (Zoloft Tab) 50 mg DAILY PO 02/24/17 09:00 02/24/17 08:28 50 MG Acetaminophen 650 mg 650 mg Q6H PRN PO 02/23/17 21:30 03/25/17 21:29 02/23/17 21:37 650 MG Potassium Chloride/Dextrose/ Sod Cl (D5W And 1/4nss + 20meq KCl) 1,000 ml @ 100 mls/hr Q10H IV 02/23/17 22:30 03/25/17 22:29 02/24/17 08:24 100 MLS/HR Physical Exam Vital Signs (Past 24 Hrs): Date Time Temp Pulse Resp B/P Pulse Ox O2 Delivery O2 Flow Rate FiO2 02/24/17 10:26 100 Room Air 02/24/17 06:44 36.6 84 20 129/58 99 Room Air 02/24/17 00:00 Room Air 02/24/17 00:00 36.4 74 20 139/56 98 Room Air 02/23/17 16:35 100 Room Air 02/23/17 14:34 Room Air 02/23/17 14:02 36.7 73 20 135/79 100 Room Air Physical Exam: Constitutional: appearance thin pale, decreased blink frequency, masked facies Ears, Nose, Mouth and Throat: mucous membranes Cardiovascular: normal S-1 and S-2 and regular rate and rhythm Respiratory: clear to auscultation (CTA) and no rales, rhonchi or wheeze Musculoskeletal: no peripheral edema Skin: no stigmata of neurocutaneous disease noted and normal and intact Eyes: extraocular muscles intact (EOMI) and pupils equal, round and reactive to light (PERRL) NEUROLOGIC EXAMINATION: Mental status: Alert and interactive but does not know where she is although she does think she is here for surgery Oriented to person Speech difficult to understand due to voice tremor Cranial Nerves smile symmetric, tongue midline Reflexes: Deep tendon reflexes were symmetrical and graded 2/5. plantar extension spasm Sensory: to light touch and cool touch Coordination: finger to hand with no bi pass Gait/Stance: Posture sitting up in bed Motor: hold hands bilaterally in air no drift Strength: hand spool fixer biceps triceps 4+/5, hip flex 5/5 bilaterally Laboratory Results Past 24 Hours: 02/24/17 06:15 Red Blood Count 2.94, Mean Corpuscular Volume 104.4, Mean Corpuscular Hemoglobin 34.7, Mean Corpuscular Hemoglobin Concent 33.2, Mean Platelet Volume 10.7, Neutrophils (%) (Auto) 69.3, Lymphocytes (%) (Auto) 18.9, Monocytes (%) ( Auto) 7.7, Eosinophils (%) (Auto) 3.5, Basophils (%) (Auto) 0.4, Neutrophils # ( Auto) 7.43, Lymphocytes # (Auto) 2.03, Monocytes # (Auto) 0.83, Eosinophils # ( Auto) 0.37, Basophils # (Auto) 0.04 02/24/17 06:15 Test 02/23/17 14:24 02/24/17 06:15 02/24/17 07:36 Lactic Acid Level 0.8 mmol/L (0.4-2.0) White Blood Count 10.72 K/uL (4.8-10.8) Red Blood Count 2.94 M/uL (4.2-5.4) Hemoglobin 10.2 g/dL (12.0-16.0) Hematocrit 30.7 % (37-47) Mean Corpuscular Volume 104.4 fL (80-100) Mean Corpuscular Hemoglobin 34.7 pg (25-34) Mean Corpuscular Hemoglobin Concent 33.2 g/dl (32-36) Platelet Count 148 K/uL (130-400) Mean Platelet Volume 10.7 fL (7.4-10.4) Neutrophils (%) (Auto) 69.3 % Lymphocytes (%) (Auto) 18.9 % Monocytes (%) (Auto) 7.7 % Eosinophils (%) (Auto) 3.5 % Basophils (%) (Auto) 0.4 % Neutrophils # (Auto) 7.43 K/uL (1.4-6.5) Lymphocytes # (Auto) 2.03 K/uL (1.2-3.4) Monocytes # (Auto) 0.83 K/uL (0.11-0.59) Eosinophils # (Auto) 0.37 K/uL (0-0.5) Basophils # (Auto) 0.04 K/uL (0-0.2) RDW Standard Deviation 51.4 fL (36.4-46.3) RDW Coefficient of Variation 13.6 % (11.5-14.5) Immature Granulocyte % (Auto) 0.2 % Immature Granulocyte # (Auto) 0.02 K/uL (0.00-0.02) Anion Gap 9.0 mmol/L (3-11) Est Creatinine Clear Calc Drug Dose 29.9 ml/min Estimated GFR () 66.4 Estimated GFR (Non- 57.3 BUN/Creatinine Ratio 22.8 (10-20) Calcium Level 8.7 mg/dl (8.5-10.1) Bedside Glucose 157 mg/dl (70-90) Imaging CT head- There are age-related involutional changes noting mild subcortical and periventricular microangiopathic change. There is no hemorrhage, mass effect , or evidence of acute territorial ischemia by CT criteria. [place]-white matter is preserved. No extra-axial fluid collection is seen. Impression 81 year female history of parkinson's disease and dementia - acute delirium Plan 1. sinemet 25/100 mg QID -may be causing hallucinations would not increase- if hallucination continue could try reducing dosing 2. psychiatry for delirium -Seroquel was tried in the past causing too much sedation. 3. records indicate son has make her DNR 4. would minimize transfers if possible can cause increased confusion and hospital delirium 5. does not appear to have overt delirium 6. fall precautions 7. supplements if needed for nutritional status I have seen and discussed above patient with Dr Rubin Barahona, neurology Patient known to me She has advanced pd with dementia and hallucinations and aggressive behavior toward recently seroquel added and she may hve become more lethargic on this and is now dehydrated and not taking fluids or food welll has her usual dysarthria almost pseudobulbar speech hearing loss and today actually has minomal dyskinesias and little bradykinesia or rigidity and minimal tremor. At this point would not push the sinemet as it will only make her mental status and hallucinations worse continue seroquel and getpsych involved re management of her agitation and axnieties possibly a candidate for nuplazid but to date I have been less than impressed with its overall added value in management of parkinsons hallucinations and particularly in managing the agitation will continue to follow reviewed with Daphne Barhaona MD
[2017-02-24 14:50] VITALS: BP 158/70; PULSE 61; TEMP 36.3; O2SAT 100
--- NOTE | 2017-02-24 17:55 | Progress Note ---
Internal Med Progress Note Date of Service: Feb 24, 2017. Provider Documentation: SUBJECTIVE: very confused , crying , trying to climb out of bed Son -Leighton and granddaughter present at bedside updated by Speech therapy earlier -pt refused to have any thickened liquid during speech eval which will continue to lead to be severely dehydrated Discussed with family -very poor quality of life with advance dementia, Parkinson's disease , significant dysphagia limited life expectancy based on numerous studies with combination of above co morbidities palliative care would be appropriate for the patient where she will be allowed to eat and drink what she likes ( thin liquid as per pt's preference ) allowing permissive aspiration her worsening of confusion could be combination of delirium /metabolic encephalopathy due to dehydration /hypernatremia with underling dementia Son and granddaughter are very tearful they do not want to see her in such as state and suffer willing for hospice /comfort care ordered to transition care for hospice Palliative care consult requested will cont gentle hydration overnight -hoping to allow some improvement of mentation with hydration and correction of hypernatremia at reasonable level social service will be updated regarding hospice care depending pt's clinical status will determine inpatient hospice vs transition of comfort care to retirement family is OK for [facility] OBJECTIVE: minimum exam due to Hospice Care Vital Signs-as noted below Exam: General-elderly female , very delirious , crying , asking for help , trying to climb out of bed constantly ENT-very dry oral mucosa Neuro-disoriented, confused Lab data as noted below. ASSESSMENT & PLAN: DELIRIUM /AGITATION ; Due to metabolic encephalopathy with dehydration ./hypernatremia CT head demonstrated atrophy, small vessel ischemic changes, no acute process. has underlying dementia /Parkinson;s disease very poor prognosis family willing for Hospice , comfort care pt will be provided continued support , reassurance 1:1 observation for pt's safely IM PRN Haldol for extreme agitation HYPERNATREMIA/dehydration due to dehydration , pt refused to have thickened liquid was recommended due to high aspiration risk diet changed to thin liquid with permission aspiration for comfort cont IV for next 24 hrs to allow enough correction of electrolyte to improve confusion /delirium CHRONIC ASPIRATION appreciate speech eval very poor prognosis with chronic aspiration pt refused to have thickened liquid a bedside eval diet changed to mechanical soft with thin liquid , comfort care hospice for poor prognosis PARKINSON'S DISEASE leading to delirium on Sinemet appreciate Neurology eval RESUSCITATION STATUS Discussed with son / POA. DNR /DNI has living will -does not feeding tube , heroic measures if there is no chance of meaningful recovery or quality of live Hospice /comfort care Palliative care consult requested DISPOSITION was a resident at [facility] on hospice care Comfort care /hospice Social service /Palliative care consult requested to assist in discharge planning Vital Signs: Date Time Temp Pulse Resp B/P Pulse Ox O2 Delivery O2 Flow Rate FiO2 02/24/17 17:01 Room Air 02/24/17 14:50 36.3 61 16 158/70 100 Room Air 02/24/17 10:26 100 Room Air 02/24/17 06:44 36.6 84 20 129/58 99 Room Air 02/24/17 00:00 Room Air 02/24/17 00:00 36.4 74 20 139/56 98 Room Air Lab Results: Results Past 24 Hours Test 02/23/17 20:17 02/23/17 20:37 02/24/17 06:15 02/24/17 07:36 Range/Units Sodium Level 154 151 136-145 mmol/L Potassium Level 3.9 4.2 3.5-5.1 mmol/L Chloride Level 118 117 98-107 mmol/L Carbon Dioxide Level 26 25 21-32 mmol/L Anion Gap 10.0 9.0 3-11 mmol/L Blood Urea Nitrogen 29 21 7-18 mg/dl Creatinine 1.10 0.94 0.60-1.20 mg/dl Est Creatinine Clear Calc Drug Dose 25.6 29.9 ml/min Estimated GFR () 54.9 66.4 Estimated GFR (Non- 47.4 57.3 BUN/Creatinine Ratio 26.1 22.8 10-20 Random Glucose 100 143 70-99 mg/dl Calcium Level 8.6 8.7 8.5-10.1 mg/dl Bedside Glucose 111 157 70-90 mg/dl White Blood Count 10.72 4.8-10.8 K/uL Red Blood Count 2.94 4.2-5.4 M/uL Hemoglobin 10.2 12.0-16.0 g/dL Hematocrit 30.7 37-47 % Mean Corpuscular Volume 104.4 80-100 fL Mean Corpuscular Hemoglobin 34.7 25-34 pg Mean Corpuscular Hemoglobin Concent 33.2 32-36 g/dl Platelet Count 148 130-400 K/uL Mean Platelet Volume 10.7 7.4-10.4 fL Neutrophils (%) (Auto) 69.3 % Lymphocytes (%) (Auto) 18.9 % Monocytes (%) (Auto) 7.7 % Eosinophils (%) (Auto) 3.5 % Basophils (%) (Auto) 0.4 % Neutrophils # (Auto) 7.43 1.4-6.5 K/uL Lymphocytes # (Auto) 2.03 1.2-3.4 K/uL Monocytes # (Auto) 0.83 0.11-0.59 K/uL Eosinophils # (Auto) 0.37 0-0.5 K/uL Basophils # (Auto) 0.04 0-0.2 K/uL RDW Standard Deviation 51.4 36.4-46.3 fL RDW Coefficient of Variation 13.6 11.5-14.5 % Immature Granulocyte % (Auto) 0.2 % Immature Granulocyte # (Auto) 0.02 0.00-0.02 K/uL
[2017-02-24] MEDS ORDERED: HALOPERIDOL LACTATE 5 MG/ML 1 ML VIAL IM PRN (18:30)
[2017-02-24] MEDS ORDERED: LORAZEPAM INJ 0.5 MG in SYRINGE 0.25 ML IV PRN (18:30)
[2017-02-24] MEDS ORDERED: LORAZEPAM 2 MG/ML 1 ML VIAL IV PRN (19:00)
[2017-02-24] MEDS: QUETIAPINE FUMARATE 25 MG TAB PO SCH (20:27)
[2017-02-25] MEDS: D5W AND 1/4NSS + 20MEQ KCL 1,000 ML IV SCH (06:27)
[2017-02-25] MEDS: CARBIDOPA/LEVODOPA 25/100MG TAB PO SCH ×4 (09:33→20:58)
[2017-02-25] MEDS: CLONAZEPAM 0.5 MG TAB PO SCH ×3 (09:34→20:58)
--- NOTE | 2017-02-25 14:43 | Palliative Care Consultation ---
Consultation Date of Consultation: Feb 25, 2017. Requesting Physician: Dr. Franklin Attending Physician: Dr. Franklin Reason for Consultation: Goals of care, symptom management History of Present Illness This 81 year old female patient presented to the ED two days ago from [facility] with c/o increased weakness and confusion. Patient herself is a poor historian with dementia and Parkinson's disease. Her son apparently stated that patient has been confused, agitated and possibly even hallucinating. Her sodium was 151 on admission, CT of the head negative for anything acute. Neurology was consulted-- suggested not to increase sinemet as it could contribute to hallucinations. Patient also has trouble with swallowing/aspiration. She was evaluated by speech, but refuses thickened liquids. Patient's overall prognosis is very poor and patient's son/POA Charly Tejeda and patient's granddaughter stated that patient would just want to be comfortable in this situation, no heroic measures. Palliative care consulted to assist with establishing goals of care. I met with the patient in room 260. She has a 1:1 [employer] POLISHER or safety, but the FRENCH POLISHER states that patient has been doing better today, no agitation or behavioral issues. She is pleasantly confused and very hard of hearing. She could not participate in goals of care conversation. Her son is coming in today, I will try to meet with him to do POLST form and discuss. order processing manager updated me and stated that the plan is for patient to go back to [facility] with hospice. Past Medical/Surgical History Medical History: CVA Parkinson's disease Dementia Anxiety Asthma CKD Depression DM 2 GERD Surgical History: Hernia repair Cholecystectomy Left hip fracture Mastectomy Cataract Tonsillectomy Social History Smoking Status: Never Smoker History of Alcohol Use: No Housing Status: assisted living Review of Systems ENT: + hearing loss Respiratory: No cough, No shortness of breath Cardiac: No chest pain Abdomen: No nausea, No pain, No vomiting Female : No problem reported limited ROS due to patient's cognition Allergies Coded Allergies: Lisinopril (Unverified Allergy, Unknown, UNKNOWN, 10/10/16) Fluoxetine (Verified Adverse Reaction, Mild, NAUSEA, 10/10/16) if medicated VIA IV PT DOES NOT EXPERIANCE NAUSEA Morphine (Verified Adverse Reaction, Mild, NAUSEA, 10/10/16) Oxycodone (Verified Adverse Reaction, Mild, NAUSEA, 10/10/16) Propoxyphene (Verified Adverse Reaction, Mild, NAUSEA, 10/10/16) Medications Current Inpatient Medications Medications (Trade) Dose Ordered Sig/Miracle Route Start Time Stop Time Status Last Admin Dose Admin Carbidopa/Levodopa (Sinemet 25/ 100MG Tab) 1 tab QID PO 02/23/17 17:00 03/25/17 16:59 02/25/17 12:56 1 TAB Clonazepam (Klonopin Tab) 0.5 mg TID PO 02/23/17 14:00 03/25/17 13:59 02/25/17 13:36 0.5 MG Quetiapine Fumarate (seroQUEL TAB) 25 mg HS PO 02/23/17 21:00 03/25/17 20:59 02/24/17 20:27 25 MG Acetaminophen 650 mg 650 mg Q6H PRN PO 02/23/17 21:30 03/25/17 21:29 02/23/17 21:37 650 MG Potassium Chloride/Dextrose/ Sod Cl (D5W And 1/4nss + 20meq KCl) 1,000 ml @ 75 mls/hr [id number] IV 02/23/17 22:30 03/25/17 22:29 02/25/17 06:27 75 MLS/HR Haloperidol Lactate 5 mg 5 mg Q6 PRN IM 02/24/17 18:30 03/26/17 18:29 02/24/17 21:26 5 MG Lorazepam/Syringe (Ativan Inj/ Syringe) 0.5 ml @ 0.5 mls/min Q4 PRN IV 02/24/17 18:30 03/26/17 18:29 02/24/17 21:14 0.5 MLS/MIN Lorazepam (Ativan Inj) 0.5 mg Q4H PRN IV 02/24/17 19:00 03/26/17 18:59 Physical Exam Date Time Temp Pulse Resp B/P Pulse Ox O2 Delivery O2 Flow Rate FiO2 02/25/17 07:50 Room Air 02/25/17 00:00 Room Air 02/24/17 17:01 Room Air 02/24/17 14:50 36.3 61 16 158/70 100 Room Air General Appearance: no apparent distress, + thin ENT: + pertinent finding (hard of hearing) Neck: no JVD Respiratory: no respiratory distress, no accessory muscle use, + decreased breath sounds Cardiovascular: regular rate, rhythm, no edema, + normal peripheral pulses Abdomen: normal bowel sounds, non tender, soft Neurologic/Psychiatric: alert, + disoriented Laboratory Results Last 24 Hours Test 02/24/17 16:24 Bedside Glucose 111 mg/dl Assessment & Plan Palliative Performance Scale: 40 % Problem list: Confusion/delirium- metabolic encephalopathy vs. dementia vs. Parkinson's Weakness Hypernatremia Dysphagia/aspiration Low PO intake Goals of care (Z51.5) Palliative care plan: -DNR/DNI per previous discussion between patient's son and provider -Goal is to go back to [facility] with hospice -Will try to get POLST form completed with patient's son/Leighton WALSH -Change lorazepam to SL tab -Continue other medications Thank you kindly for this consult. I will follow as needed.
[2017-02-25 16:00] VITALS: O2SAT 100
--- NOTE | 2017-02-25 17:40 | Progress Note ---
Internal Med Progress Note Date of Service: Feb 25, 2017. Provider Documentation: SUBJECTIVE: on comfort care/hospice OBJECTIVE: minimum exam due to Hospice Care Vital Signs-as noted below Exam: General-elderly female , very delirious , crying , asking for help , trying to climb out of bed constantly ENT-very dry oral mucosa Neuro-disoriented, confused Lab data as noted below. ASSESSMENT & PLAN: COMFORT CARE /HOSPICE : Very poor prognosis with advance dementia /Perkinson's disease /severe dysphagia /recurrent aspiration presented with Hypernatremia , dehydration , MICHELLE on comfort care hospice appreciate palliative care [facility] changed to SL PRN D/C IVF RESUSCITATION STATUS DNR /DNI has living will -does not feeding tube , heroic measures if there is no chance of meaningful recovery or quality of live Hospice /comfort care Palliative care consult requested -appreciate input DISPOSITION was a resident at [facility] return to [facility] with hospice care Vital Signs: Date Time Temp Pulse Resp B/P Pulse Ox O2 Delivery O2 Flow Rate FiO2 02/26/17 08:00 Room Air 02/26/17 00:00 Room Air 02/25/17 16:00 100 Room Air
[2017-02-25] MEDS ORDERED: LORAZEPAM 1 MG TAB SL PRN (17:45)
--- NOTE | 2017-02-25 17:58 | PROGRESS NOTE ---
DATE: 02/25/2017 I saw Chapo today with her son at her bedside. She seems calm in his presence, is less agitated, still was dysarthria, is confused but does not appear to be actively hallucinating. Her Parkinson's is about the same with some dyskinetic movements today, very little bradykinesia and rigidly with her peculiar speech pattern I think is a mix of the speech associated with hearing impairment which she certainly has and a nonspecific pseudobulbar type pattern that might be seen as part of her Parkinson's. Whatever the case, the son now is thinking about placing her in [facility] for hospice and not taking her back to I believe [facility]. We will see how things mak out, but right now she has been made comfort care and I totally agree with this. I would suggest that low dose Seroquel be used on an as needed basis for periods of agitation. The 25 mg at bedtime might be a reasonable standard dose and 12.5 mg up to twice a day in addition to that would be not be an unusual starter dose. I will follow her at this point, but again we are on record is emphasizing that dopamine therapy is not going to help this over and above the level she is at now to keep her motor status reasonably well controlled. More dopamine is simply going to agitate her, increase her hallucinations and make her management more difficult. MTDD
[2017-02-25] MEDS: QUETIAPINE FUMARATE 25 MG TAB PO SCH (20:58)
[2017-02-26] MEDS: CLONAZEPAM 0.5 MG TAB PO SCH ×2 (08:47→13:08)
[2017-02-26] MEDS: CARBIDOPA/LEVODOPA 25/100MG TAB PO SCH ×3 (08:47→16:38)
[2017-02-26] MEDS ORDERED: QUETIAPINE FUMARATE 25 MG TAB PO PRN (11:45)
[2017-02-26] MEDS ORDERED: HALOPERIDOL 1 MG TAB PO PRN (11:45)
--- NOTE | 2017-02-26 14:39 | Neurology Progress Notes ---
Neurology Progress Note Date of Service Feb 26, 2017. Nas Cowan is an 81 year old female who is currently living at [facility]. she has a history of parkinson's disease and dementia and is known to our office. She had some increased confusion and agitation and sometimes screams. She sometimes has visual hallucinations. She has not been eating well. She is very [place] and does not answer appropriately to questions. She states she is feeling well today. denies CP, SOB, abdominal pain, N, V. Objective Date Time Temp Pulse Resp B/P Pulse Ox O2 Delivery O2 Flow Rate FiO2 02/26/17 08:00 Room Air 02/26/17 00:00 Room Air 02/25/17 16:00 100 Room Air no new labs Imaging: no new imaging Exam: Physical Exam: Constitutional: appearance thin pale Ears, Nose, Mouth and Throat: mucous membranes moist,decreased blink frequency, mask facies Cardiovascular: normal S-1 and S-2 and regular rate and rhythm Respiratory: clear to auscultation (CTA) and no rales, rhonchi or wheeze Musculoskeletal: no peripheral edema Skin: no stigmata of neurocutaneous disease noted and normal and intact Eyes: extraocular muscles intact (EOMI) and pupils equal, round and reactive to light (PERRL) NEUROLOGIC EXAMINATION: Mental status: Alert and interactive Oriented she knows she is at [facility] Oriented to person Speech fluent with no evidence of aphasia, but hear to understand at times Cranial Nerves facial symmetry Sensory: intact to light touch Coordination: finger to nose with no bi pass, no cog wheeling, resting tremor bilaterally with some essential tremor with reach Gait/Stance: sitting up in bed Motor: Negative for pronator drift of out stretched arms with eyes closed. Strength: generalized weakness, lifts legs against gravity, some LE rigidity Current Inpatient Medications Medications (Trade) Dose Ordered Sig/Miracle Route Start Time Stop Time Status Last Admin Dose Admin Carbidopa/Levodopa (Sinemet 25/ 100MG Tab) 1 tab QID PO 02/23/17 17:00 03/25/17 16:59 02/26/17 13:08 1 TAB Clonazepam (Klonopin Tab) 0.5 mg TID PO 02/23/17 14:00 03/25/17 13:59 02/26/17 13:08 0.5 MG Quetiapine Fumarate (seroQUEL TAB) 25 mg HS PO 02/23/17 21:00 03/25/17 20:59 02/25/17 20:58 25 MG Acetaminophen (Tylenol Tab) 650 mg Q6H PRN PO 02/23/17 21:30 03/25/17 21:29 02/23/17 21:37 650 MG Haloperidol Lactate (Haldol Inj) 5 mg Q6 PRN IM 02/24/17 18:30 03/26/17 18:29 02/24/17 21:26 5 MG Lorazepam (Ativan Inj) 0.5 mg Q4H PRN IV 02/24/17 19:00 03/26/17 18:59 Lorazepam (Ativan Tab) 1 mg Q6 PRN SL 02/25/17 17:45 03/27/17 17:44 Quetiapine Fumarate (seroQUEL TAB) 12.5 mg BID PRN PO 02/26/17 11:45 03/28/17 11:44 Haloperidol (Haldol Tab) 2 mg Q6 PRN PO 02/26/17 11:45 03/28/17 11:44 Impression 81 year female history of parkinson's disease and dementia - acute delirium Plan 1. sinemet 25/100 mg QID -may be causing hallucinations would not increase- if hallucination continue could try reducing dosing 2. psychiatry for delirium -Seroquel was tried in the past causing too much sedation. was restarted on low dose seroquel 3. records indicate son has make her DNR- palliative medicine has been consulted 4. would minimize transfers if possible can cause increased confusion and hospital delirium 5. does not appear to have overt delirium 6. fall precautions 7. supplements if needed for nutritional status 8. ok to transfer back to facility once medically appropriate-currently no 1:1 in room I have seen and discussed above patient with Dr Rubin Barahona, neurology Patient seen but now apparently gong back to [facility] on old sinemet dose and low dose seroquel she is calm but clearly demented today and has minor parkinsons signs and only mild dyskinesia and her chronic odd dysarthria we will see bck in clinic as perviously scheduled Rubin Barahona MD
[2017-02-26] MEDS ORDERED: SRQ25 PO (15:06)
[2017-02-26] MEDS ORDERED: CLON0.5T3 PO (15:06)
[2017-02-26] MEDS ORDERED: QUET1TAB91 PO (15:06)
[2017-02-26] MEDS ORDERED: HLD1 PO (15:06)
[2017-02-26] MEDS ORDERED: ATV1 SL (15:06)
--- NOTE | 2017-02-26 15:08 | Discharge Instructions ---
Discharge Instructions Date of Service Feb 26, 2017. Admission Reason for Admission: Altered Mental Status Discharge Discharge Diagnosis / Problem: ADVANCED DEMENTIA /SEVERE DYSPHAGIA /HOSPICE Discharge Goals Goal(s): Decrease discomfort Activity Recommendations Activity Limitations: as noted below ( TOLERATED ) . Instructions / Follow-Up Instructions / Follow-Up RETURN TO [facility] WITH HOSPICE Current Hospital Diet Patient's current hospital diet: Regular Diet Discharge Diet Recommended Diet: Regular Diet Pending Studies Studies pending at discharge: no Laboratory Results Hemoglobin A1c Test 01/30/17 07:05 Range/Units Estimated Average Glucose 126 mg/dl Hemoglobin A1c 6.0 H 4.5-5.6 % Medical Emergencies . Who to Call and When: Medical Emergencies: If at any time you feel your situation is an emergency, please call 911 immediately. . Non-Emergent Contact Non-Emergency issues call your: Urologist ([facility] ) . . "Provider Documentation" section prepared by Miri Franklin. . VTE Core Measure Inpt VTE Proph given/why not?: Unfractionated heparin SQ [place] Drug Monitoring Program Search Results: no issues identified
--- NOTE | 2017-02-26 15:14 | Progress Note ---
Internal Med Progress Note Date of Service: Feb 26, 2017. Provider Documentation: SUBJECTIVE: wants to know when she can go home tearful no agitation noted pt is reassured that she will be able to return home as soon as possible per nursing -pt managed to eat regular diet with out any discomfort OBJECTIVE: minimum exam due to Hospice Care Vital Signs-as noted below Exam: General-elderly female , advance dementia, no agitation noted ENT- NAD Neuro-advance dementia , oriented to person only Lab data as noted below. ASSESSMENT & PLAN: COMFORT CARE /HOSPICE : Very poor prognosis with advance dementia /Parkinson's disease /severe dysphagia /recurrent aspiration presented with Hypernatremia , dehydration , MICHELLE on comfort care hospice appreciate palliative care consult Ativan changed to SL PRN PARKINSON'S DISEASE: with advanced dementia, progressive dysphagia very poor prognosis appreciate input form Neurology on Sinemet on Seroquel 25 mg PO HS Seroquel 12.5 mg PO BID PRN for agitation ordered as per Neurology recommendation family-Son Leighton Tejeda -willing for Hospice care -as pt does not have any quality of life RESUSCITATION STATUS DNR /DNI has living will -does not feeding tube , heroic measures if there is no chance of meaningful recovery or quality of live Hospice /comfort care Palliative care consult requested -appreciate input DISPOSITION [facility] with hospice care appreciate input form Social service pt will return to the personal senior care [facility] today with [facility] involved in care Vital Signs: Date Time Temp Pulse Resp B/P Pulse Ox O2 Delivery O2 Flow Rate FiO2 02/26/17 08:00 Room Air 02/26/17 00:00 Room Air 02/25/17 16:00 100 Room Air
--- NOTE | 2017-02-26 15:18 | Discharge Summary ---
Discharge Summary Date of Service Feb 26, 2017. Discharge Summary Admission Date: Feb 23, 2017 at 12:48 Discharge Date: Feb 26, 2017 Discharge Disposition: Personal care (with Hospice through [facility] ) Principal Diagnosis: ADVANCED DEMENTIA /SEVERE DYSPHAGIA /HOSPICE Consultations: NEUROLOGY -DR QUARLES PALLIATIVE CARE Medication Reconciliation New Medications: Haloperidol (Haloperidol) 1 Mg Tab 2 MG PO Q6 PRN for agitation , #60 TAB Lorazepam (Lorazepam) 1 Mg Tab 1 MG SL Q6 PRN for Anxiety/agitation , #90 TAB Quetiapine Fumarate (Quetiapine Fumarate) 25 Mg Tab 12.5 MG PO BID PRN for agitation , #30 TAB Continued Medications: Acetaminophen (Tylenol) 325 Mg Tab 650 MG PO Q4 PRN for Pain, TAB Carbidopa/Levodopa (Sinemet 25MG/100MG) Tab 1 TABS PO QID, TAB Cholecalciferol (Vitamin D3) 2,000 Unit Cap 1 CAP PO DAILY for 30 Days, #30 CAP 3 Refills Clonazepam (Klonopin) 0.5 Mg Tab 0.5 MG PO TID, #90 TAB (This prescription has been renewed) Lidocaine (Lidoderm Patch 5%) 1 Ea Tdsy 1 PATCH TOP DAILY Polyethylene Glycol 3350 (Miralax) 1 Pow Pow 17 GM PO DAILY, #527 GM Quetiapine Fumarate (Seroquel) 25 Mg Tab 25 MG PO HS, #30 TAB (This prescription has been renewed) Sennosides-Docusate Sodium (Senokot S) 1 Tab Tab 2 TABS PO BID, TAB Discontinued Medications: Amantadine Hcl (Amantadine Hcl) 100 Mg Cap 100 MG PO BID, CAP Amlodipine (Norvasc) 5 Mg Tab 5 MG PO DAILY, TAB Anastrozole (Anastrozole) 1 Mg Tab 1 TAB PO DAILY Ferrous Gluconate (Ferrous Gluconate) 324 Mg Tab 324 MG PO TIDM for 30 Days, #90 TAB Glimepiride (Glimepiride) 1 Mg Tab 1 TAB PO DAILY for 90 Days, #90 TAB 3 Refills Nutritional Supplements (Glucerna) 1 Liq Liq 1 CAN PO BID Sertraline (Zoloft) 100 Mg Tab 100 MG PO DAILY, TAB Sertraline Hcl (Zoloft) 50 Mg Tab 50 MG PO DAILY, TAB Admission Information HPI (per Admitting provider): 81 YO female followed by Dr. Schaefer for Family Medicine and Dr. Quarles for Neurology. History of Parkinson's disease, dementia, and other problems noted below. She resides at [facility] in [place]. Family has noticed increasing weakness and confusion. She is often agitated and sometimes screams. At times, she appears to be having visual hallucinations. Appetite is poor. No apparent fever, cough, nausea, vomiting, diarrhea, or urinary symptoms. . Physical Exam (per Admitting): General Appearance: + cachetic Head: normocephalic, atraumatic Eyes: normal inspection, PERRL, EOMI, sclerae normal ENT: + pertinent finding (oral mucosa very dry) Neck: supple, no adenopathy, thyroid normal, no JVD, trachea midline Respiratory/Chest: lungs clear, no respiratory distress, no accessory muscle use Cardiovascular: + pertinent finding (exam very limited (pt prefers not to be examined), RRR, no murmur, gallop, or rub appreciatiate) Abdomen/GI: normal bowel sounds, non tender, soft, no organomegaly, no pulsatile mass Extremities/Musculoskelatal: no calf tenderness, normal capillary refill, no pedal edema Neurologic/Psych: + pertinent finding (exam very limited; pt unable to cooperate; PERRL, EOMI; confused / agitated; moves all 4 extr; Babinski's equivocally upgoing bilat) Skin: normal color, warm/dry, no rash, + pertinent finding (s/p right mastectomy; multiple ecchymoses) Lymphatic: no adenopathy Hospital Course COMFORT CARE /HOSPICE : Very poor prognosis with advance dementia /Parkinson's disease /severe dysphagia /recurrent aspiration presented with Hypernatremia , dehydration , MICHELLE on comfort care hospice appreciate palliative care consult Ativan changed to SL PRN PARKINSON'S DISEASE: with advanced dementia, progressive dysphagia very poor prognosis appreciate input form Neurology on Sinemet on Seroquel 25 mg PO HS Seroquel 12.5 mg PO BID PRN for agitation ordered as per Neurology recommendation family-Son Leighton Tejeda -willing for Hospice care -as pt does not have any quality of life RESUSCITATION STATUS DNR /DNI has living will -does not feeding tube , heroic measures if there is no chance of meaningful recovery or quality of live Hospice /comfort care Palliative care consult requested -appreciate input DISPOSITION was a resident at [facility] return to [facility] with hospice care appreciate input form Social service pt will return to the personal [facility] today with [facility] involved in care Total time spent on discharge = 35 m ins This includes examination of the patient, discharge planning, medication reconciliation, and communication with other providers. Discharge Instructions Discharge Instructions Date of Service Feb 26, 2017. Admission Reason for Admission: Altered Mental Status Discharge Discharge Diagnosis / Problem: ADVANCED DEMENTIA /SEVERE DYSPHAGIA /HOSPICE Discharge Goals Goal(s): Decrease discomfort Activity Recommendations Activity Limitations: as noted below ( TOLERATED ) . Instructions / Follow-Up Instructions / Follow-Up RETURN TO [facility] WITH HOSPICE Current Hospital Diet Patient's current hospital diet: Regular Diet Discharge Diet Recommended Diet: Regular Diet Pending Studies Studies pending at discharge: no Laboratory Results Hemoglobin A1c Test 01/30/17 07:05 Range/Units Estimated Average Glucose 126 mg/dl Hemoglobin A1c 6.0 H 4.5-5.6 % Medical Emergencies . Who to Call and When: Medical Emergencies: If at any time you feel your situation is an emergency, please call 911 immediately. . Non-Emergent Contact Non-Emergency issues call your: Urologist ([facility] ) . . "Provider Documentation" section prepared by Miri Franklin. . VTE Core Measure Inpt VTE Proph given/why not?: Unfractionated heparin SQ PA Drug Monitoring Program Search Results: no issues identified Additional Copies To Rosibel Schaefer,DO
[2017-02-26 16:31] VITALS: BP 158/70; PULSE 61; TEMP 36.3; O2SAT 100
== END 2017-02-26 17:30 | disposition hospice, home (50) | DRG 682 ==
LOC: ENRESERVTM → ENRESERVDT → EDBD 08:51 → C.EDA 08:53 → C.MS2W 12:48
PROVIDERS: ADMIT Hospitalist; ATTEND Hospitalist
DX: N17.9 Acute kidney failure, unspecified (principal); E87.0 Hyperosmolality and hypernatremia; G93.41 Metabolic encephalopathy; Z51.5 Encounter for palliative care; N39.0 Urinary tract infection, site not specified; F02.81 Dementia in other diseases classified elsewhere, unspecified severity, with behavioral disturbance; R25.1 Tremor, unspecified; G31.83 Neurocognitive disorder with Lewy bodies; I12.9 Hypertensive chronic kidney disease with stage 1 through stage 4 chronic kidney disease, or unspecified chronic kidney disease; Z66 Do not resuscitate; N18.3 Chronic kidney disease, stage 3 (moderate); Z85.3 Personal history of malignant neoplasm of breast; E11.21 Type 2 diabetes mellitus with diabetic nephropathy; F41.1 Generalized anxiety disorder; R13.10 Dysphagia, unspecified

== ENCOUNTER 2017-02-27 20:05 | Emergency (ER) | payer OTHER ==
[~2017-02-27] VITALS: Ht 165.1 cm; Wt 42.3 kg
[~2017-02-27 20:05] MED LIST changes: -ANAS1TAB6 PO; -ASPEC81 PO; +ATV1 SL; -CEPH500C PO; -CHOL100010 PO; +CHOL2000 PO; -FRRG PO; -GLIM1TAB2 PO; +HLD1 PO; -LIDO5DIS10 TOP; +NF656 TOP; -NRV5 PO; -NUTR-468 PO; +POLY335019 PO; +QUET1TAB91 PO; +SENN-65 PO; -SENN1TAB86 PO; -SERT-234 PO; +SRQ25 PO
[2017-02-27 20:31] VITALS: TEMP 36.8; Ht 165.1 cm; Wt 42.3 kg
[2017-02-27] MEDS ORDERED: ACETAMINOPHEN 325 MG TAB PO STA (20:57)
[2017-02-27] MEDS ORDERED: XYLOCAINE 1%/SOD BICARB 20 ML VIAL INFIL ONE (21:00)
--- NOTE | 2017-02-27 22:21 | EMERGENCY ROOM VISIT NOTE ---
ED Visit Note 81-year-old female who I was asked by Dr. Duong to perform a right upper extremity laceration repair. Please see his dictation for further treatment and final disposition. PROCEDURE NOTE: The granddaughter who was with the patient reports that she becomes extremely agitated. She reports that if I attempt to administer any local anesthesia, we would probably have to provide some type of sedation and/ or hold her down. Upon further examination of the wound. She does not have any extension of the laceration into the dermis or subcutaneous tissue. I also explained that if I tried to apply Dermabond, it would start to burn which may also agitate her more. I did suggest applying benzoin skin prep and Steri- Strips for closure. The granddaughter thought that this was a good idea as well. The wound was lightly cleansed with saline. The patient did start to become agitated, however her granddaughter was able to calm her down with nursery rhymes. Benzoin skin prep was applied, and Steri-Strips were used to approximate the wound with excellent results. An IV glove and Kerlix dressing was applied. The patient had 2 separate lacerations, measuring 4.5 cm and 14.5 cm for a total laceration length of 19 cm.
--- NOTE | 2017-02-27 22:28 | DIAGNOSTIC IMAGING REPORT ---
RIGHT WRIST MIN 3 VIEWS ROUTINE, RIGHT HAND MIN 3 VIEWS ROUTINE CLINICAL HISTORY: Right hand and wrist pain. COMPARISON STUDY: None. FINDINGS: The bones are osteopenic. Soft tissue swelling within the wrist. Severe degenerative changes at the STT and first carpometacarpal joints. Old, healed second and fourth metacarpal fractures. Erosive change at the base of the proximal phalanx of the middle finger. Moderate osteoarthritis at the DIP and PIP joints. No acute fracture or dislocation. IMPRESSION: No acute fracture or dislocation within the right hand or right wrist. Additional chronic changes as described above. Electronically signed by: Zaid Ball M.D. 02/27/2017 10:26 PM Dictated Date/Time: 02/27/2017 10:22 PM
[2017-02-27] MEDS ORDERED: HALOPERIDOL 1 MG TAB PO STA (22:29)
[2017-02-27] MEDS ORDERED: TOBRAMYCIN OP STA (23:14)
[2017-02-27 23:42] VITALS: BP 115/52; PULSE 69; O2SAT 95
--- NOTE | 2017-02-28 01:34 | EMERGENCY ROOM VISIT NOTE ---
History Report prepared by Ayde: Sera Marino Under the Supervision of: Dr. Kai Duong M.D. 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 The patient has a history of dementia. She was discharged from the hospital yesterday and returned to [facility] assisted living. She was placed on hospice but family prefers to have her stay at [facility] with her . Per staff at [facility], the patient rolled out of her low bed tonight, onto the surrounding mats, and rolled onto the carpet. When she rolled onto the carpet she injured her right wrist. The patient has a skin tear and is complaining of right wrist pain. The patient's granddaughter states that she has frequent falls and falls almost every day. The HPI is limited due to the patient's dementia. Source of History: patient History Limited By: dementia Onset: BLOOD DONOR UNIT ASSISTANT Position: other (global - fall) Timing: other (episode) Review of Systems ROS is limited secondary to the patient's dementia. Past Medical & Surgical Medical Problems: (1) Anxiety (2) Asthma (3) At high risk for aspiration (4) Breast cancer (5) CKD (chronic kidney disease), stage III (6) Dementia (7) Depression (8) Diabetes mellitus, type 2 (9) PRICE (generalized anxiety disorder) (10) GERD (gastroesophageal reflux disease) (11) Hypernatremia (12) Parkinson disease Surgical Problems: (1) Femoral neck fracture (2) H/O hernia repair (3) H/O mastectomy (4) History of cataract surgery (5) Hx of tonsillectomy (6) S/P cholecystectomy (7) S/p left hip fracture Family History Cancer Gallbladder disease Heart disease Social History Smoking Status: Never Smoker Alcohol Use: none Housing Status: lives with significant other, fpc, unknown Current/Historical Medications Scheduled Carbidopa/Levodopa (Sinemet 25MG/100MG), 1 TABS PO QID Cholecalciferol (Vitamin D3), 1 CAP PO DAILY Clonazepam (Klonopin), 0.5 MG PO TID Lidocaine (Lidoderm Patch 5%), 1 PATCH TOP DAILY Polyethylene Glycol 3350 (Miralax), 17 GM PO DAILY Quetiapine Fumarate (Seroquel), 25 MG PO HS Sennosides-Docusate Sodium (Senokot S), 2 TABS PO BID Scheduled PRN Acetaminophen (Tylenol), 650 MG PO Q4 PRN for Pain Haloperidol (Haloperidol), 2 MG PO Q6 PRN for agitation Lorazepam (Lorazepam), 1 MG SL Q6 PRN for Anxiety/agitation Quetiapine Fumarate (Quetiapine Fumarate), 12.5 MG PO BID PRN for agitation Allergies Coded Allergies: Lisinopril (Unverified Allergy, Unknown, UNKNOWN, 02/27/17) Fluoxetine (Verified Adverse Reaction, Mild, NAUSEA, 02/27/17) if medicated VIA IV PT DOES NOT EXPERIANCE NAUSEA Morphine (Verified Adverse Reaction, Mild, NAUSEA, 02/27/17) Oxycodone (Verified Adverse Reaction, Mild, NAUSEA, 02/27/17) Propoxyphene (Verified Adverse Reaction, Mild, NAUSEA, 02/27/17) Physical Exam Vital Signs Date Time Temp Pulse Resp B/P Pulse Ox O2 Delivery O2 Flow Rate FiO2 02/27/17 23:42 69 24 115/52 95 Room Air 02/27/17 22:17 78 12 147/62 97 Room Air 02/27/17 20:36 70 02/27/17 20:31 36.8 77 28 136/82 96 Room Air Physical Exam Constitutional: Vital signs reviewed. Eyes: Pupils are equal round reactive to light. Left eye conjunctiva injected. ENT: Pharynx is clear without erythema or exudate. Mucous membranes are moist. Neck supple without meningeal signs. Respiratory: Clear to auscultation bilaterally. Breath sounds are equal bilaterally. Cardiovascular: Regular rate and rhythm. No rubs or gallops. GI: Soft, nondistended and nontender. Bowel sounds are present. Musculoskeletal: She has a 14.5cm laceration to the dorsum of the hand and right wrist and a 4.5cm laceration on the ulnar aspect of the same area, tendon sheaths are visible but no tendon injury is visible. Small skin tear to the right elbow, no bony tenderness. Integumentary: No cyanosis. Neurological: The patient is awake and alert. No focal deficits. Psychiatric: Unable to assess affect. Medical Decision & Procedures ER Provider Diagnostic Interpretation: Radiology results as stated below per my review and the radiologist's interpretation: RIGHT WRIST MIN 3 VIEWS ROUTINE, RIGHT HAND MIN 3 VIEWS ROUTINE CLINICAL HISTORY: Right hand and wrist pain. COMPARISON STUDY: None. FINDINGS: The bones are osteopenic. Soft tissue swelling within the wrist. Severe degenerative changes at the STT and first carpometacarpal joints. Old, healed second and fourth metacarpal fractures. Erosive change at the base of the proximal phalanx of the middle finger. Moderate osteoarthritis at the DIP and PIP joints. No acute fracture or dislocation. IMPRESSION: No acute fracture or dislocation within the right hand or right wrist. Additional chronic changes as described above. Electronically signed by: Zaid Ball M.D. 02/27/2017 10:26 PM Dictated Date/Time: 02/27/2017 10:22 PM RIGHT WRIST MIN 3 VIEWS ROUTINE, RIGHT HAND MIN 3 VIEWS ROUTINE CLINICAL HISTORY: Right hand and wrist pain. COMPARISON STUDY: None. FINDINGS: The bones are osteopenic. Soft tissue swelling within the wrist. Severe degenerative changes at the STT and first carpometacarpal joints. Old, healed second and fourth metacarpal fractures. Erosive change at the base of the proximal phalanx of the middle finger. Moderate osteoarthritis at the DIP and PIP joints. No acute fracture or dislocation. IMPRESSION: No acute fracture or dislocation within the right hand or right wrist. Additional chronic changes as described above. Electronically signed by: Zaid Ball M.D. 02/27/2017 10:26 PM Dictated Date/Time: 02/27/2017 10:22 PM Medications Administered Medications (Trade) Dose Ordered Sig/Miracle Route Start Time Stop Time Status Last Admin Dose Admin Acetaminophen (Tylenol Tab) 650 mg NOW STAT PO 02/27/17 20:57 02/27/17 20:59 DC 02/27/17 21:15 650 MG Haloperidol (Haldol Tab) 2 mg ONE STAT PO 02/27/17 22:29 02/27/17 22:30 DC 02/27/17 22:29 2 MG Tobramycin Sulfate (Tobrex Oph Oint) 1 appln NOW STAT OP 02/27/17 23:14 02/27/17 23:15 DC 02/27/17 23:14 1 APPLN ED Course 2047: The patient was evaluated in room B5. A complete history and physical exam was performed. 2056: Tylenol 650 mg PO 2099: Lidocaine HCl 2126: The child welfare caseworker talked to the patient's granddaughter and she is agreeable to having the patient return to [facility]. They will request a standing order for Haldol in the evenings from the patient's doctor. 2225: The patient's granddaughter requested Haldol for the patient before discharge. She wants to speak with the child welfare caseworker about a sedation order. 2228: Haldol 2 mg PO 2236: I reassessed the patient. She has no bony tenderness to the right elbow. I discussed the results and treatment plan with the patient's granddaughter. I answered all pertaining questions that she had. She expressed understanding and verbalized agreement. The patient will be discharged home. 2313: Tobramycin sulfate 1 appln OP Medical Decision This is an 81-year-old female who presents with an injury to her right arm after a fall. I did perform a limited focused review of portions of the patient 's old chart on the electronic medical record. The patient was admitted on 02/23 and discharged yesterday for dementia and dysphagia and placed on hospice. She had significant hypernatremia. I did evaluate the patient as noted above. I did obtain history from the patient's granddaughter due to her dementia. She did have a fall today and suffered an arm injury. She has no other complaints. She does have skin tears and lacerations to her right arm with some mild bony tenderness to the wrist but not the elbow. The wounds were repaired by LARA Odom. Please see his note for further details. I did order and personally review the patient's x -rays as described above. There is no evidence of fracture. The granddaughter and her power of document review attorney were concerned about her going back to her assisted living. I therefore have the child welfare caseworker talk to them. After further discussion they did agree to have her go back but requested I sedate her before she goes with Haldol. She does have a when necessary order for Haldol but they requested that she have a standing order. I did state that they should discuss this with her doctor as I could not give orders for the assisted living center. She does appear to have conjunctivitis of the left eye and was given tobramycin eyedrops. She was also given Tylenol for her arm pain. She was given 2 mg of Haldol and transported back home. Impression Primary Impression: Fall Additional Impressions: Injury of right lower arm Laceration of right upper extremity Conjunctivitis, left eye Scribe Attestation The scribe's documentation has been prepared under my direct and personally reviewed by me in its entirety. I confirm that the note above accurately reflects all work, treatment, procedures, and medical decision making performed by me. Departure Information Dispostion Home / Self-Care Referrals ADAMA COOPER (PCP) Forms HOME CARE DOCUMENTATION FORM, IMPORTANT VISIT INFORMATION Patient Instructions ED Laceration All, [facility] Additional Instructions Keep Steri-Strips and wound dry. Suggest keeping the wound well covered to avoid picking at the wound or Steri- Strips. Do not apply any antibiotic ointments. Watch for any signs of developing infection. Applied tobramycin ointment to the left eye every 6 hours while awake for the next 7 days. You have been examined and treated today on an emergency basis only. This is not a substitute for, or an effort to provide, complete comprehensive medical care. It is impossible to recognize and treat all injuries or illnesses in a single emergency department visit. It is therefore important that you follow up closely with your physician. Call as soon as possible for an appointment. Return for worsening symptoms or if you develop fever or any other concerning symptoms. Problem Qualifiers Primary Impression: Fall Encounter type: initial encounter Qualified Codes: W19.XXXA - Unspecified fall, initial encounter Additional Impressions: Injury of right lower arm Encounter type: initial encounter Qualified Codes: S59.911A - Unspecified injury of right forearm, initial encounter Laceration of right upper extremity Encounter type: initial encounter Qualified Codes: S41.111A - Laceration without foreign body of right upper arm, initial encounter Conjunctivitis, left eye Conjunctivitis type: unspecified Qualified Codes: H10.9 - Unspecified conjunctivitis
== END 2017-02-28 | disposition home or self-care (01) ==
LOC: EDBD 20:05 → C.EDB 20:06
DX: S51.811A Laceration without foreign body of right forearm, initial encounter (principal); W06.XXXA Fall from bed, initial encounter; Y92.122 Bedroom in nursing home as the place of occurrence of the external cause; H10.9 Unspecified conjunctivitis; F03.90 Unspecified dementia, unspecified severity, without behavioral disturbance, psychotic disturbance, mood disturbance, and anxiety; F41.9 Anxiety disorder, unspecified; J45.909 Unspecified asthma, uncomplicated; Z85.3 Personal history of malignant neoplasm of breast; F32.9 Major depressive disorder, single episode, unspecified; E11.9 Type 2 diabetes mellitus without complications; K21.9 Gastro-esophageal reflux disease without esophagitis; E87.0 Hyperosmolality and hypernatremia; G20 Parkinson's disease; Z80.9 Family history of malignant neoplasm, unspecified; Z83.79 Family history of other diseases of the digestive system; Z82.49 Family history of ischemic heart disease and other diseases of the circulatory system; Z79.899 Other long term (current) drug therapy